=== PATIENT | male | born 1975 | race Caucasian/White ===

== ENCOUNTER 2021-04-13 08:40 | Outpatient (CLI) | payer BC | END 2021-04-13 08:41 | disposition home or self-care (01) | LOC: CSHMRI 08:40 | PROVIDERS: ATTEND Student in an Organized Health Care Education/Training Program | DX: H90.5 Unspecified sensorineural hearing loss (principal); G93.89 Other specified disorders of brain | CPT/HCPCS: 70553 ==

== ENCOUNTER 2021-11-08 14:01 | Outpatient (CLI) | payer BC ==
[2021-11-08] MEDS ORDERED: Magnevist 469MG/ML 20 ML VIAL ONE (14:53)
== END 2021-11-08 14:02 | disposition home or self-care (01) ==
LOC: CSHMRI 14:01
PROVIDERS: ATTEND Surgery
DX: D32.9 Benign neoplasm of meninges, unspecified (principal); D32.0 Benign neoplasm of cerebral meninges
CPT/HCPCS: 70553; A9579